=== PATIENT | female | born 1945 | race Caucasian/White ===

== ENCOUNTER 2023-05-01 07:42 | Outpatient (CLI) | payer MEDICARE, SELFPAY ==
--- NOTE | 2023-05-01 06:00 | DI.RAD_ITS ---
Exam(s) XR PAIN CLINIC CERVICAL SP 2V EXAM: XR PAIN CLINIC CERVICAL SP 2V CLINICAL HISTORY: Dx: Cervical Spondylosis. TECHNIQUE: Fluoroscopy was provided for the referring physician for guidance with performing pain cl inic injection procedure. COMPARISON: No exams were available for comparison FINDINGS: Please see procedure note for details. Fluoro time: 35.4 seconds RADIATION DOSE DELIVERED: luly Vallejo=2.78 mGy
[2023-05-01 07:58] VITALS: BP 161/101; PULSE 79; RESP 20; TEMP 36.6; O2SAT 98
--- NOTE | 2023-05-01 08:34 | PDOC.PAIN ---
Date of service: 05/01/23 Time of Service: 08:34 Pain Managment Procedure Note Procedure Note Procedure Note: PROCEDURE NOTE LEFT SIDED CERVICAL MEDIAL BRANCH BLOCKS Date of Service: May 01, 2023 Patient: PJ SERRA Provider: Sourav Mckeon DO, MPH PJ SERRA has been [facility] for cervical medial branch blocks. Pre-operative diagnosis: Cervical Spondylosis without Myelopathy Post-operative diagnosis: Same Pre-procedure pain: VAS= 9/10 COMMENTS: I evaluated her in the clinic on 02/06/23 and her pain has not changed. She will hold the Ibuprofen for 24 hours after this procedure. PJ?was interviewed and the medical records were reviewed. There were no medical, pharmacologic, radiographic or other structural contraindications to attempting fluoroscopically guided local anesthetic cervical medial branch blocks. Risks and potential side effects were discussed. I also discussed the potential benefit(s) of the procedure with PJ, and voiced concerns were addressed. After PJ was completely informed about the procedure, the printed consent form was signed. A standard time-out procedure was performed. PJ was placed in the lateral decubitus position on the fluoroscopy table with the effected side up. Automated blood pressure cuff and pulse oximeter were applied. The skin entry points for approaching the anatomic target points of the segmental medial branches of Left C3,C4,C5 and C6 were identified with fluoroscopy and marked. The skin at the target site area was thoroughly prepared with Chlorhexadine. The skin was then draped. Next, a 25 gauge 3.5 spinal needle was placed under fluoroscopic guidance down on to the target point (the articular pillar) for each respective segmental medial branch. Position was confirmed in A/P and lateral views. Aspiration revealed no blood or clear fluid. Next, 0.25ml of omnipaque 240 was injected at each level. No contrast following a vascular or neural pattern was visualized under continuous fluoroscopy. Next, 0.25 ml of preservative-free 0.5% bupivicaine was injected at each level. (49 mls of Omnipaque was wasted) There was no unusual discomfort expressed by PJ. The needles were withdrawn without difficulty. PJ was observed and was without hemodynamic, neurologic, or allergic reactions.? Fluoroscopic images were digitally archived. PJ's vital signs were stable throughout the procedure and were as recorded in the docflowsheet by the nursing staff. Provacative testing using the Modified Menendez's facet loading test Left side Directly before the block VAS (0-10) = 9/10 Five minutes after the block VAS (0-10) = 4/10 Percentage relief obtained with this diagnostic block 60% Any improved physical functioning directly after the blocks? Able to move her neck much better Follow up plans and appointments were discussed with PJ. PJ was instructed to keep careful note of how the usual pain was modified by these injections. Specifically, to keep a pain diary for the next 4 hours using a numeric pain scale of 0-10 and report these results. Post procedure instruction was given as documented in the nursing documentation and having met discharge criteria, the patient was [facility]. Based on the medial branches blocked today, if PJ has adequate relief and we are able to proceed to radiofrequency ablation, the treatment should result in the denervation of the Left C3-C4, C4-C5, and C5-C6 facet joints. We would expect to denervate a total of 3 facets during the radiofrequency ablation. COMMENTS: No apparent complications. Post-procedure pain: VAS= 4/10 PJ will call back with 0-4 hour post-procedure pain scores. I personally performed the entire procedure. SOURAV MCKEON DO, MPH ABPM&R-subspecialty board certification in Pain Medicine [facility]
[2023-05-01 08:42] VITALS: BP 143/81; PULSE 84; RESP 18; O2SAT 98
[2023-05-01] MEDS: Bupivacaine 0.5% Pres-Free 10 ML VIAL IJ (08:44)
[2023-05-01] MEDS: Omnipaque 240 MG/ML 50 ML BTL IJ (08:44)
== END 2023-05-01 07:43 | disposition home or self-care (01) ==
PROVIDERS: PCP Family Medicine; Visit Provider Preventive Medicine Occupational Medicine
DX: M54.2 Cervicalgia (principal); M47.812 Spondylosis without myelopathy or radiculopathy, cervical region
CPT/HCPCS: 00123; 64490; 64491; 64492; 72040; Q9967

== ENCOUNTER → 2023-05-22 19:01 | Outpatient (CLI) | payer MEDICARE, SELFPAY ==
--- NOTE | 2023-05-22 15:30 | DI.RAD_ITS ---
Exam(s) XR CERVICAL SP COMP W FLEX/EXT EXAM: XR CERVICAL SP COMP W FLEX/EXT CLINICAL HISTORY: Left sided neck pain resistent to interventional, cervical spondylosis w/o. TECHNIQUE: 2D digital imaging was performed. Seven images were obtained. AP, odontoid, lateral, flex ion, extension and bilateral oblique images were obtained. COMPARISON: CR XR C SPINE ROUTINE MIN 4-5 VWS from 04/10/2022 FINDINGS: The LPO images suboptimal for evaluation of neural foraminal narrowing. The odontoid is intact. The lateral masses are well aligned. There is normal alignment. The bones a re osteopenic. There is disc space narrowing most marked from C4-5 through C6-C7. There are endplat e osteophytes at multiple levels of the cervical spine. Degenerative changes of the facets are also seen at multiple levels. No subluxation is seen with flexion or extension. No acute fracture or sub luxation is present. No significant neural foraminal stenosis is present. The cervical thoracic junc tion is well maintained. The prevertebral soft tissues are unremarkable. Lung apices are clear. IMPRESSION: Mild degenerative changes are seen in the cervical spine. DATA REPOSITORY: RADIATION DOSE DELIVERED:
== END ==
PROVIDERS: PCP Family Medicine; Visit Provider Preventive Medicine Occupational Medicine
DX: M47.812 Spondylosis without myelopathy or radiculopathy, cervical region (principal)
CPT/HCPCS: 72052

== ENCOUNTER 2024-12-10 01:12 | Outpatient (CLI) | payer MEDICARE, SELFPAY ==
--- NOTE | 2024-12-10 13:02 | DI.RAD_ITS ---
Exam(s) XR FOOT LT COMPLETE EXAM: XR FOOT LT COMPLETE CLINICAL HISTORY: Left foot/toe pain,[id number]. TECHNIQUE: 2D digital imaging was performed. Three views. COMPARISON: None FINDINGS: BONES: No acute fracture is present. No bony destructive lesion is seen. Plantar calcaneal spur. Mild calcification in the plantar fascia. JOINTS: No dislocation present. Hammertoe deformities of the 2nd and 3rd toes. Degenerative changes at the 4th toe. SOFT TISSUE: Normal. IMPRESSION: Hammertoe deformities. DATA REPOSITORY: RADIATION DOSE DELIVERED:
== END 2024-12-10 01:32 ==
PROVIDERS: PCP Physician Assistant Medical; Visit Provider Podiatrist
DX: L60.3 Nail dystrophy (principal); M79.674 Pain in right toe(s); M79.675 Pain in left toe(s); B35.1 Tinea unguium; M20.42 Other hammer toe(s) (acquired), left foot
CPT/HCPCS: 11719; 99204; 73630

== ENCOUNTER → 2025-04-08 13:44 | Outpatient (BNVA) | payer MEDICARE, SELFPAY | PROVIDERS: PCP Physician Assistant Medical; Referring Provider Physician Assistant Medical; Visit Provider Podiatrist | DX: L60.3 Nail dystrophy (principal); B35.1 Tinea unguium; M79.674 Pain in right toe(s); M79.675 Pain in left toe(s); M20.42 Other hammer toe(s) (acquired), left foot; R25.2 Cramp and spasm | CPT/HCPCS: 99214 ==